=== PATIENT | female | born 1960 | race Caucasian/White ===

== ENCOUNTER 2016-07-31 15:40 | Emergency (ER) | payer OTHER ==
[2016-07-31] MEDS ORDERED: Ibuprofen TAB* 600 MG PO ONE (16:30)
--- NOTE | 2016-07-31 17:17 | ED ---
Lower Extremity - HPI Summary HPI Summary: Patient presents after she twisted her left ankle while walking after coming out of work. She fell [place] and scraped the outside of her ankle. She was able to get up but has pain with weight bearing so [facility] was called. She arrives splinted in place by [facility]. She denies previous injury to this ankle. No N/T, with mild swelling. - History of Current Complaint Chief Complaint: EDExtremityLower Stated Complaint: HURT ANKLE IN FALL @ WORK Time Seen by Provider: 07/31/16 16:27 Hx Obtained From: Patient Mechanism Of Injury: Twisted Onset of Pain: Hours Severity Initially: Severe Severity Currently: Severe Pain Intensity: 8 Timing: Constant Location: Is Discrete @ - left ankle Character Of Pain: Aching, Stiffness Associated Signs And Symptoms: Positive: Swelling - mild Aggravating Factor(s): Standing, Movement Alleviating Factor(s): Nothing Able to Bear Weight: Yes - with pain - Allergies/Home Medications Allergies/Adverse Reactions: Allergies Allergy/AdvReac Type Severity Reaction Status Date / Time No Known Allergies Allergy Verified 06/02/14 14:32 PMH/Surg Hx/FS Hx/Imm Hx Previously Healthy: Yes - Cancer History Hx Chemotherapy: No Hx Radiation Therapy: No Infectious Disease History: Denies: Traveled Outside the [place] in Last 30 Days - Family History Known Family History: Positive: Hypertension - Social History Occupation: Employed Full-time Lives: With Family Alcohol Use: Occasionally Substance Use Type: Reports: None Smoking Status (MU): Never Smoked Tobacco Review of Systems Positive: Myalgia, Decreased ROM, Edema Negative: Bruising Negative: Paresthesia, Numbness All Other Systems Reviewed And Are Negative: Yes Physical Exam Triage Information Reviewed: Yes Vital Signs On Initial Exam: Initial Vitals Temp Pulse Resp Pulse Ox 97.1 F 80 20 99 07/31/16 16:05 07/31/16 16:05 07/31/16 16:05 07/31/16 16:05 Vital Signs Reviewed: Yes Appearance: Positive: Well-Appearing, Pain Distress, Obese Skin: Positive: Warm, Skin Color Reflects Adequate Perfusion, Dry, Soft Head/Face: Positive: Normal Head/Face Inspection Eyes: Positive: EOMI, ABDIEL, Conjunctiva Clear ENT: Positive: Hearing grossly normal Respiratory/Lung Sounds: Positive: Breath Sounds Present Cardiovascular: Positive: RRR Musculoskeletal: Positive: Limited @ - dorsiflexion, plantar flexion, inversion , eversion limited by pain, Pain @ - TTP lateral mallioli, Edema Left Neurological: Positive: Sensory/Motor Intact, Alert, Oriented to Person Place, Time, NV Bundle Intact Distally, Unable to Assess Gait Psychiatric: Positive: Affect/Mood Appropriate AVPU Assessment: Alert Diagnostics - Vital Signs Vital Signs Temp Pulse Resp BP Pulse Ox 07/31/16 16:10 109/49 07/31/16 16:05 97.1 F 80 20 99 - Laboratory Lab Statement: Any lab studies that have been ordered have been reviewed, and results considered in the medical decision making process. - Radiology No standard instances Xray Interpretation: No Acute Changes Radiology Interpretation Completed By: Radiologist Lower Extremity Course/Dx - Diagnoses Differential Diagnosis/HQI/PQRI: Positive: Bursitis, Contusion, Dislocation, Fracture (Closed), Sprain, Strain Provider Diagnoses: Left ankle sprain, Abrasion of left ankle Discharge - Discharge Plan Condition: Stable Disposition: HOME Patient Education Materials: Ankle Sprain (ED), Ankle Stirrup Splint (ED) Referrals: Otto Hernandez MD [Primary Care Provider] - Additional Instructions: Please put weight on your foot as your pain allows. Use ibuprofen 600mg three times daily with meals for the next 3-5 days to decrease swelling and pain. Elevate your ankle above your heart and apply ice to reduce swelling as well. Follow-up with your primary care provider if symptoms do not begin to improve in the next 7-10 days. Return to the emergency department is symptoms worsen.
--- NOTE | 2016-07-31 17:22 | RAD ---
Indication: LEFT ankle pain with weightbearing post fall. Comparison: No relevant prior exams available on the [facility]. Technique: AP, mortise, and lateral views LEFT ankle. Report: Negative for fracture. Mild medial joint space narrowing at the talocrural joint. Suggestion of talocrural joint effusion. Soft tissue swelling about the ankle most prominent over the medial malleolus and anterior aspect. Moderate plantar fascia origin bone spur. Medial and anterior lower leg phleboliths. IMPRESSION: The constellation of findings is concerning for deltoid ligament tear. Negative for fracture.
[2016-07-31 18:02] VITALS: BP 111/65
== END 2016-07-31 18:01 | disposition home or self-care (01) ==
LOC: ED 15:40
DX: S93.402A Sprain of unspecified ligament of left ankle, initial encounter (principal); S90.512A Abrasion, left ankle, initial encounter; W19.XXXA Unspecified fall, initial encounter; Y93.9 Activity, unspecified; Y92.9 Unspecified place or not applicable
CPT/HCPCS: 99282; A9270-GY

== ENCOUNTER 2017-03-14 10:02 | Day surgery (SDC) | payer OTHER ==
[~2017-03-14 10:02] MED LIST: Buffered Lidocaine 0.9% SYRIN* 5 ML/SYR SYRINGE INTRADERM ONE; DiMENhydriNATE IV* 50 MG/ML VIAL IV PUSH PRN; Famotidine IV* 10 MG/ML 2 ML (20 mg) IV ONE; PROCHLORPERAZINE INJ 5 MG/ML 2 ML VIAL IV PRN; fentaNYL* 50 MCG/ML 2 ML VIAL (100 MCG VIAL) IV PRN; oxyCODONE/Acetamin 5/325 MG* TAB PO PRN
[2017-03-14] MEDS ORDERED: ceFAZolin 2 GM PREMIX (*) 2 GM/50 ML BAG IVPB ONE (10:10)
[2017-03-14] MEDS ORDERED: ceFAZolin 1 GM VIAL(*) ONE (10:10)
[2017-03-14] MEDS ORDERED: Famotidine IV* 10 MG/ML 2 ML (20 mg) ONE (10:10)
[2017-03-14] MEDS ORDERED: Bupivacaine 0.25% SDV* 30 ML ONE (11:18)
[2017-03-14] MEDS ORDERED: Lidocaine 1% MPF wEPI 200,000* 30 ML SDV ONE (11:22)
[2017-03-14] MEDS ORDERED: Midazolam* 1 MG/ML 2 ML VIAL (2 MG) ONE (11:25)
[2017-03-14] MEDS ORDERED: fentaNYL* 50 MCG/ML 2 ML VIAL (100 MCG VIAL) ONE (11:25)
[2017-03-14] MEDS ORDERED: KETAMINE HCL* 50 MG/ML 10 ML VIAL ONE (11:25)
[2017-03-14] MEDS ORDERED: Methylene Blue 0.5 %* 50 MG/10 ML AMP IV ONE (11:26)
[2017-03-14] MEDS ORDERED: Petrolatum 5 GM* 5 GM PACKET ONE (12:34)
[2017-03-14] MEDS ORDERED: Propofol* 10 MG/ML 20 ML BTL IV PUSH ONE (13:03)
[2017-03-14] MEDS ORDERED: Lidocaine 2% PF * 5 ML VIAL ONE (13:03)
[2017-03-14] MEDS ORDERED: Ondansetron INJ* 2 MG/ML VIAL ONE (13:03)
[2017-03-14 13:18] VITALS: BP 135/65
== END 2017-03-14 13:30 | disposition home or self-care (01) ==
LOC: OREAST 10:02
PROVIDERS: ATTEND Plastic Surgery
DX: Q27.39 Arteriovenous malformation, other site (principal); I10 Essential (primary) hypertension; E11.9 Type 2 diabetes mellitus without complications; Z79.84 Long term (current) use of oral hypoglycemic drugs; F17.210 Nicotine dependence, cigarettes, uncomplicated
CPT/HCPCS: 88305; A9270-GY; J0690; J2001; J2250; J2405; J2704; J3010